=== PATIENT | female | born 1955 | race Asian ===

== ENCOUNTER 2019-10-14 12:02 | Emergency (ER) | payer MEDICARE, OTHER ==
[2019-10-14] MEDS ORDERED: oxyCODONE 5 MG TABLET PO STA (13:16)
--- NOTE | 2019-10-14 13:18 | ED Physician Documentation ---
History of Present Illness - Stated complaint Stated Complaint: GLF - Chief complaint Chief Complaint: Trauma Ext - History obtained from History obtained from: Patient - History of Present Illness Timing: Today, How many hours ago (2) Pain level max: 7 Pain level now: 6 - Additonal information Additional information: patient tripped and fell, striking the left side of her face on the ground. she also landed on her B knees and L thumb. worse with movement and better with rest. No LOC. no vomiting. Took tylenol [employer]. Td UTD. No neck or back pain. 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 - Past Surgical History Past Surgical History: Yes - Present Medications Home Medications: Ambulatory Orders Medication Instructions Recorded Confirmed Esomeprazole Magnesium [Nexium] 20 mg PO DAILY 05/11/16 05/11/16 Hydrocodone/Acetaminophen [[place] 1 each PO Q6H PRN #20 tablet 05/11/16 5-325 Tablet] Pentosan Polysulfate Sodium 100 mg PO DAILY 05/11/16 05/11/16 [[place]] Tolterodine Tartrate [Detrol] 1 mg PO DAILY 05/11/16 05/11/16 atenoloL [Atenolol] 25 mg PO DAILY 05/11/16 05/11/16 methocarbamoL [Robaxin] 500 mg PO Q6H PRN #25 tablet 05/11/16 Oxycodone HCl/Acetaminophen 1 - 2 each PO Q6H PRN #7 tablet 10/14/19 [Percocet 5-325 mg Tablet] - Allergies Allergies/Adverse Reactions: Allergies Allergy/AdvReac Type Severity Reaction Status Date / Time meloxicam Allergy Rash Verified 10/14/19 12:11 morphine Allergy Rash Verified 10/14/19 12:11 ofloxacin [From Floxin] Allergy Rash Verified 10/14/19 12:11 sulfamethoxazole Allergy Rash Verified 10/14/19 12:11 [From ] trimethoprim [From ] Allergy Rash Verified 10/14/19 12:11 - Social History Does the pt smoke?: No Smoking Status: Never smoker Does the pt drink ETOH?: Yes Does the pt have substance abuse?: No PD ED PE NORMAL - Vitals Vital signs reviewed: Yes - General General: Alert and oriented X 3, No acute distress, Well developed/nourished - HEENT HEENT: PERRL, EOMI, Ears normal, Moist mucous membranes, Pharynx benign - Neck Neck: Supple, no meningeal sign, No bony TTP - Cardiac Cardiac: RRR, Strong equal pulses - Respiratory Respiratory: No respiratory distress, Clear bilaterally - Abdomen Abdomen: Soft, Non tender, Non distended - Back Back: No spinal TTP - Derm Derm: Warm and dry - Extremities Extremities: Other (Tender palpation over the base of the left thumb. Neurovascular intact. No deformity. Also tender over the bilateral patella. No ligamentous instability. ACL, MCL, LCL, PCL are intact. No joint effusion. Also tender over the nasal bridge and left side of the face. No gross deformity. No septal hematomas.) - Neuro Neuro: Alert and oriented X 3, county ordinary 2-12 intact, No motor deficit, No sensory deficit, Normal speech Eye Opening: Spontaneous Motor: Obeys Commands Verbal: Oriented GCS Score: 15 - Psych Psych: Normal mood, Normal affect Results - Vitals Vitals: Vital Signs - 24 hr 10/14/19 10/14/19 12:08 15:47 Temperature 36.5 C 36.9 C Heart Rate 62 52 L Respiratory 16 16 Rate Blood Pressure 178/95 H 118/74 O2 Saturation 95 96 Oxygen O2 Source Room air - Rads (name of study) Maxillofacial CT Radiology: Prelim report reviewed, EMP read contemporaneously, See rad report (No acute fractures) Bilateral knee x-rays Radiology: Prelim report reviewed, EMP read contemporaneously, See rad report (No acute fractures) Left hand x-ray Radiology: Prelim report reviewed, EMP read contemporaneously, See rad report ( No acute fractures) PD MEDICAL DECISION MAKING - ED course Complexity details: reviewed results, re-evaluated patient, considered diff erential, d/w patient ED course: Patient is status post a ground-level fall. No acute radiographic findings. Ambulating well. Pain well controlled. Tetanus is up-to-date. We will prescribe pain medication for home. Patient counseled regarding signs and symptoms for which I believe and urgent re-evaluation would be necessary. Patient with good understanding of and agreement to plan and is comfortable going home at this time This document was made in part using voice recognition software. While efforts are made to proofread this document, sound alike and grammatical errors may occur. Departure - Departure Disposition: 01 Home, Self Care Clinical Impression: Abrasion of knee, bilateral Fall Qualifiers: Encounter type: initial encounter Qualified Code(s): W19.XXXA - Unspecified fall, initial encounter Contusion of face Qualifiers: Encounter type: initial encounter Qualified Code(s): S00.83XA - Contusion of other part of head, initial encounter Left thumb sprain Qualifiers: Encounter type: initial encounter Sprain of finger site: unspecified site Qualified Code(s): S63.602A - Unspecified sprain of left thumb, initial encounter Condition: Stable Instructions: ED Abrasion, ED Contusion Face, ED Sprain Finger Follow-Up: Your,doctor in 1 week [Other] Prescriptions: Oxycodone HCl/Acetaminophen [Percocet 5-325 mg Tablet] 1 - 2 each PO Q6H PRN #7 tablet PRN Reason: pain Comments: Thankfully there are no fractures on your CT scan or x-rays today. This should improve over the next few days. Return if you worsen. Do not drink alcohol or drive while on narcotic pain medicine. Note that many narcotic pain relievers also contain tylenol/acetaminophen. Please ensure that your total dose of acetaminophen from all sources does not exceed 3 grams (3000mg) per day. You may constipated on this medication, take a stool softener such as "Colace" twice a day while you are on it. Also recommend a [id number]-uhezptj laxative such as senna or MiraLAX any day that you do not have a bowel movement. If you received narcotic pain medication in the emergency department, do not drive or operate machinery for the next 24 hours. Discharge Date/Time: 10/14/19 15:52
--- NOTE | 2019-10-14 14:07 | XRAY Report ---
Reason: fall, B knee pain Procedure Date: 10/14/2019 Accession Number: [id number] / [id number] Procedure: XR - Knee 4 View BILAT CPT Code: Final Report FULL RESULT: EXAMS: BILATERAL KNEE RADIOGRAPHY, 4 VIEWS EACH EXAM DATE:10/14/2019 01:39 PM. CLINICAL HISTORY:64-year-old female post fall with bilateral knee pain. COMPARISON: None. TECHNIQUE: AP, both oblique and cross table lateral views of both knees. FINDINGS: Right Knee: Bones: Normal. No fractures or bone lesions. Joints: Normal. No effusion. No subluxations. Soft Tissues: Normal. No soft tissue swelling. Left Knee: Bones: Normal. No fractures or bone lesions. Joints: Normal. No effusion. No subluxations. Soft Tissues: Normal. No soft tissue swelling. IMPRESSION: Normal bilateral knee radiographic studies. No posttraumatic changes noted. RADIA
--- NOTE | 2019-10-14 14:09 | XRAY Report ---
Reason: fall, L thumb pain Procedure Date: 10/14/2019 Accession Number: [id number] / [id number] Procedure: XR - Hand 3 View LT CPT Code: Final Report FULL RESULT: EXAM: LEFT HAND RADIOGRAPHY, 3 VIEWS EXAM DATE: 10/14/2019 01:51 PM. CLINICAL HISTORY: Fall, left thumb pain. COMPARISON: None. TECHNIQUE: Frontal, lateral and oblique views. FINDINGS: Bones: Normal. No fractures or bone lesions. Joints: Moderate osteoarthritic changes in the IP joints diffusely. No subluxations or joint effusion. Soft Tissues: Normal. No soft tissue swelling. IMPRESSION: No acute process or posttraumatic abnormality. Moderate osteoarthritis diffusely in the IP joints. RADIA
--- NOTE | 2019-10-14 15:37 | CT Report ---
Reason: fall, facial pain Procedure Date: 10/14/2019 Accession Number: [id number] / [id number] Procedure: CT - MAXILLOFACIAL WO CPT Code: Final Report FULL RESULT: EXAM: CT MAXILLOFACIAL WITHOUT CONTRAST EXAM DATE: 10/14/2019 01:44 PM. CLINICAL HISTORY: Fall, facial pain. COMPARISONS: None. TECHNIQUE: Thin-section axial images were acquired of the face without contrast. Post-processing: Coronal and sagittal reformats. Other: None. In accordance with CT protocol optimization, one or more of the following dose reduction techniques were utilized for this exam: automated exposure control, adjustment of mA and/or KV based on patient size, or use of iterative reconstructive technique. FINDINGS: Soft Tissue: The infratemporal fossa and parapharyngeal spaces are unremarkable. Orbits: Symmetric and unremarkable. Bones: No acute traumatic fracture is detected Temporomandibular Joints: The left temporomandibular joint demonstrates extensive degenerative changes in the right temporomandibular joint demonstrates complete loss of the condyle, potentially prior resection. Sinuses: Normal. No mucosal thickening or fluid levels. Other: None. 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 RADIA
[2019-10-14 15:51] VITALS: BP 118/74
== END 2019-10-14 15:52 | disposition home or self-care (01) ==
LOC: ED 12:02
DX: S63.602A Unspecified sprain of left thumb, initial encounter (principal); S00.83XA Contusion of other part of head, initial encounter; S80.212A Abrasion, left knee, initial encounter; S80.211A Abrasion, right knee, initial encounter; W10.1XXA Fall (on)(from) sidewalk curb, initial encounter; I10 Essential (primary) hypertension
CPT/HCPCS: 70486; 73130; 73564; 99284; A9270